=== PATIENT | female | born 1960 | race Caucasian/White ===

== ENCOUNTER 2024-07-18 11:01 | Emergency (ER) | payer BC | END 2024-07-18 11:54 | disposition home or self-care (01) | LOC: MW.ED 11:01 | DX: S09.90XA Unspecified injury of head, initial encounter (principal); S61.216A Laceration without foreign body of right little finger without damage to nail, initial encounter; M53.3 Sacrococcygeal disorders, not elsewhere classified; Z75.8 Other problems related to medical facilities and other health care; W22.01XA Walked into wall, initial encounter | CPT/HCPCS: 99283 ==